=== PATIENT | female | born 1980 | race Caucasian/White ===

== ENCOUNTER → 2016-12-15 | Outpatient (CLI) | payer BC ==
[~2016-12-15] MED LIST: BCPILLS PO; MULT-506; [UNRECOGNIZED DRUG - REMARK]
--- NOTE | 2016-12-15 14:43 | DIAGNOSTIC IMAGING REPORT ---
CHEST 2 VIEWS ROUTINE CLINICAL HISTORY: Shortness of breath COMPARISON STUDY: 10/11/2009 FINDINGS: The cardiac and mediastinal contours are normal. There is no evidence of focal pulmonary consolidation. There is no evidence of failure. No pleural effusions are visualized.[ IMPRESSION: No active disease in the chest. Electronically signed by: Gary Birch M.D. 12/15/2016 2:41 PM Dictated Date/Time: 12/15/2016 2:41 PM
--- NOTE | 2016-12-15 14:44 | DIAGNOSTIC IMAGING REPORT ---
CERVICAL SPINE 5 VIEWS HISTORY: PARESTHESIA OF SKIN COMPARISON: None. FINDINGS: The cervical spine is visualized from C1 through the superior endplate of T1. There is no fracture. No subluxation. Disc spaces are preserved. Prevertebral soft tissues and the atlantodens interval are intact. Small anterior endplate osteophytes from C3 through C6. No significant neural foraminal narrowing. IMPRESSION: No fracture or subluxation within the cervical spine. Small anterior endplate osteophytes from C3 through C6 without significant disc space narrowing. Electronically signed by: Freddy Ruvalcaba M.D. 12/15/2016 2:42 PM Dictated Date/Time: 12/15/2016 2:41 PM
== END | disposition home or self-care (01) ==
LOC: C.RAD 13:40
PROVIDERS: ATTEND Family Medicine
DX: R06.02 Shortness of breath (principal); R20.2 Paresthesia of skin; M25.78 Osteophyte, vertebrae

== ENCOUNTER → 2016-12-22 | Outpatient (CLI) | payer BC ==
--- NOTE | 2016-12-23 07:47 | PULMONARY FUNCTION TEST ---
Spirometry is normal. There is no change in the airflow with the use of albuterol.
== END | disposition home or self-care (01) ==
LOC: C.RC 13:57
PROVIDERS: ATTEND Family Medicine
DX: R06.02 Shortness of breath (principal)